=== PATIENT | male | born 1960 | race Caucasian/White ===

== ENCOUNTER 2018-05-15 02:42 | Observation (INO) | payer OTHER ==
[~2018-05-15] VITALS: Ht 167.6 cm; Wt 67.6 kg
[2018-05-15 03:51] VITALS: BP 132/73; PULSE 86; RESP 20
[2018-05-15 03:53] VITALS: Ht 167.6 cm; Wt 67.6 kg
[2018-05-15] MEDS ORDERED: NACL 0.9% 3 ML SYG IV SCH (05:30)
[2018-05-15] MEDS ORDERED: ACETAMINOPHEN 325 MG TAB PO PRN (05:30)
[2018-05-15] MEDS ORDERED: ALBUTEROL/IPRATROPIUM (NEB) 3 ML AMP HHN PRN (05:30)
[2018-05-15] MEDS ORDERED: ONDANSETRON 4 MG INJ IV PRN (05:30)
[2018-05-15] MEDS ORDERED: HYDROCODONE/APAP (5/325) TAB PO PRN (05:30)
[2018-05-15] MEDS: HYDROCODONE/APAP (5/325) TAB PO PRN (05:59)
--- NOTE | 2018-05-15 06:53 | NUR ---
EOSS: Direct admit from [facility] ED, alert, oriented X4, ambulatory with steady gait. Admission orders entered by Dr Lewis, given [place] for abdominal pain and Zofran for nausea. Complete skin check done, no pressure sore noted. Bowel sounds appreciated, SCD applied, to start on regular diet. Admission care done, to continue with plan of care.
--- NOTE | 2018-05-15 07:19 | HP ---
Date/Time of Note Date/Time of Note DATE: 05/15/18 TIME: 07:14 Assessment/Plan Lines/Catheters IV Catheter Type (from Nrsg): Peripheral IV Assessment/Plan Assessment/Plan 58-year-old male with history of alcohol abuse who is transferred to [facility] for insurance reason for management of abdominal pain with radiation to the back, most likely secondary to pancreatitis. PLAN -CT chest abdomen pelvis at the outside facility only shows distended gallbladder without stone otherwise no dissection or other acute abnormalities -Given history of alcohol abuse and location of pain, this is most likely from alcoholic pancreatitis. At the outside facility, lipase is slightly elevated. -will keep n.p.o -We will also place on PPI -Antiemetics and pain meds as needed -GI consult as needed -Check lipase -additional imaging as needed HPI/ROS Admit Date/Time Admit Date/Time May 15, 2018 at 03:28 Hx of Present Illness This is a 58-year-old male with no significant past medical history who initially presented to an outside hospital complaining of abdominal pain. Pain is mainly localized just above his umbilicus with radiation to the back. Symptoms been going on for the past few days. Reported associated nausea and vomiting. He said that he drinks heavily about 5 times a week. Denied chest pain or shortness of breath. At the outside facility, he had CT chest abdomen pelvis without significant findings except a somehow distended gallbladder without gallstones. Patient was transferred to [facility] for insurance reasons. PMH/Family/Social Past Medical History Medications Current Medications IV Flush (NS 3 ml) 3 ml PER PROTOCOL IV ; Start 05/15/18 at 05:30 Ondansetron HCl (Zofran Inj) 4 mg Q6H PRN IV NAUSEA AND/OR VOMITING Last administered on 05/15/18at 05:59; Admin Dose 4 MG; Start 05/15/18 at 05:30 Acetaminophen (Tylenol Tab) 650 mg Q6H PRN PO PAIN LEVEL 1-3 OR FEVER; Start 05/15/18 at 05:30 Acetaminophen/ Hydrocodone Bitart ([place] (5/325)) 1 tab Q6H PRN PO MODERATE PAIN LEVEL 4-6; Start 05/15/18 at 05:30 Acetaminophen/ Hydrocodone Bitart ([place] (5/325)) 2 tab Q6H PRN PO SEVERE PAIN LEVEL 7-10 Last administered on 05/15/18at 05:59; Admin Dose 2 TAB; Start 05/15/18 at 05:30 Famotidine (Pepcid) 20 mg Q12 PO ; Start 05/15/18 at 09:00 Albuterol/ Ipratropium (Duoneb) 3 ml Q2H RESP THERAPY PRN HHN SHORTNESS OF BREATH; Start 05/15/18 at 05:30 Coded Allergies: No Known Allergy (Unverified , 05/15/18) Exam/Review of Systems Vital Signs Vitals Vital Signs Date Temp Pulse Resp B/P (MAP) Pulse Ox O2 O2 Flow FiO2 Time Delivery Rate 05/15/18 98.1 86 20 132/73 97 Room Air 03:51 (92) Exam Constitutional: other (Distress due to abdominal pain) Head: normocephalic, atraumatic Eyes: EOMI, PERRL Respiratory: clear to auscultation, normal air movement Cardiovascular: regular rate and rhythm, nl pulses Gastrointestinal: soft LUIS VUONG MD May 15, 2018 07:19
--- NOTE | 2018-05-15 07:40 | NUR ---
post 1.5 hrs of taking [place] 2 tabs, pt complaining of severe abdominal pain again. Message sent to Dr Lewis for follow up.
[2018-05-15 08:22] VITALS: BP 141/86; PULSE 93; RESP 18
[2018-05-15] MEDS ORDERED: morphine 4 MG/ML VIAL IV PRN (08:30)
[2018-05-15] MEDS: KETOROLAC 30 MG INJ IV PRN ×2 (09:32→16:53)
[2018-05-15] MEDS: FAMOTIDINE 20 MG TAB PO SCH ×2 (09:33→21:01)
[2018-05-15] MEDS: CHLORDIAZEPOXIDE 25 MG CAP PO SCH ×3 (09:44→21:01)
[2018-05-15] MEDS: DEXTROSE 5%-0.45% NACL 1,000 ML IV SCH ×3 (11:04→21:01)
[2018-05-15 14:00] VITALS: BP 134/78; PULSE 88; RESP 20
[2018-05-15] MEDS ORDERED: LORAZEPAM 4 MG/ML VIAL IV PRN (14:30)
--- NOTE | 2018-05-15 14:43 | PN ---
Date/Time of Note Date/Time of Note DATE: 05/15/18 TIME: 14:35 Assessment/Plan VTE Prophylaxis Risk score (from Nsg)>0 risk: 2 SCD applied (from Nsg): Yes Pharmacological prophylaxis: other Lines/Catheters IV Catheter Type (from Nrsg): Peripheral IV Assessment/Plan Hospital Course S: Patient still having some abdominal pain symptoms. Still n.p.o. Asking for some water. O: VS - see below PE: Constitutional: other (Distress due to abdominal pain) Head: normocephalic, atraumatic Eyes: EOMI, PERRL Respiratory: clear to auscultation, normal air movement Cardiovascular: regular rate and rhythm, nl pulses Gastrointestinal: soft Neuro: No focal deficits Assessment/Plan: 58-year-old male with history of alcohol abuse who is tra nsferred to [facility] for insurance reason for management of abdominal pain with radiation to the back, most likely secondary to pancreatitis. #Alcohol pancreatitis: CT chest abdomen pelvis at the outside facility only shows distended gallbladder without stone otherwise no dissection or other acute abnormalities-but given history of alcohol abuse and location of pain, this is most likely from alcoholic pancreatitis. At the outside facility, lipase is sl ightly elevated. -For now continue to keep n.p.o -Continue PPI, trend lipase -Antiemetics and pain meds as needed -GI consult as needed -additional imaging as needed #Alcohol abuse: Patient showing some signs of withdrawal -Continue banana bag, Librium, Ativan as needed -Counseled on cessation #Questionable coronary disease: Per family member patient may have had a minor heart attack a few years ago. No present chest pain symptoms or shortness of breath. -Monitor, will check echocardiogram Result Diagram: 05/15/18 0732 05/15/18 0732 Results 24hrs Laboratory Tests Test 05/15/18 07:32 White Blood Count 14.3 H Red Blood Count 4.56 L Hemoglobin 13.0 L Hematocrit 39.1 L Mean Corpuscular Volume 85.7 Mean Corpuscular Hemoglobin 28.5 L Mean Corpuscular Hemoglobin Concent 33.2 Red Cell Distribution Width 13.4 Platelet Count 240 Mean Platelet Volume 8.7 Immature Granulocytes % 0.400 Neutrophils % 85.7 H Lymphocytes % 6.1 L Monocytes % 7.6 Eosinophils % 0.0 Basophils % 0.2 Nucleated Red Blood Cells % 0.0 Immature Granulocytes # 0.050 H Neutrophils # 12.2 H Lymphocytes # 0.9 Monocytes # 1.1 H Eosinophils # 0.0 Basophils # 0.0 Nucleated Red Blood Cells # 0.0 Sodium Level 141 Potassium Level 3.8 Chloride Level 98 Carbon Dioxide Level 29 Anion Gap 14 H Blood Urea Nitrogen 15 Creatinine 0.57 L Est Glomerular Filtrat Rate mL/min > 60 Glucose Level 134 Hemoglobin A1c 5.6 Calcium Level 9.1 Phosphorus Level 4.0 Magnesium Level 1.5 L Total Bilirubin 0.2 Direct Bilirubin 0.00 Indirect Bilirubin 0.2 Aspartate Amino Transf (AST/SGOT) 36 Alanine Aminotransferase (ALT/SGPT) 22 Alkaline Phosphatase 66 Creatine Kinase 112 Creatine Kinase Index 0.6 Creatinine Kinase MB (Mass) 0.68 Troponin I < 0.012 Total Protein 8.0 Albumin 4.6 Globulin 3.40 H Albumin/Globulin Ratio 1.35 Triglycerides Level 68 Cholesterol Level 231 H LDL Cholesterol, Calculated 110 HDL Cholesterol 107 H Cholesterol/HDL Ratio 2.1 Amylase Level 84 Lipase 85 Thyroid Stimulating Hormone (TSH) 0.711 Exam/Review of Systems Vital Signs Vitals Vital Signs Date Temp Pulse Resp B/P (MAP) Pulse Ox O2 O2 Flow FiO2 Time Delivery Rate 05/15/18 98.3 93 18 141/86 99 Room Air 08:22 (104) Medications Medications Current Medications IV Flush (NS 3 ml) 3 ml PER PROTOCOL IV ; Start 05/15/18 at 05:30 Ondansetron HCl (Zofran Inj) 4 mg Q6H PRN IV NAUSEA AND/OR VOMITING Last administered on 05/15/18at 05:59; Admin Dose 4 MG; Start 05/15/18 at 05:30 Acetaminophen (Tylenol Tab) 650 mg Q6H PRN PO PAIN LEVEL 1-3 OR FEVER; Start 05/15/18 at 05:30 Acetaminophen/ Hydrocodone Bitart ([place] (5/325)) 1 tab Q6H PRN PO MODERATE PAIN LEVEL 4-6; Start 05/15/18 at 05:30 Acetaminophen/ Hydrocodone Bitart ([place] (5/325)) 2 tab Q6H PRN PO SEVERE PAIN LEVEL 7-10 Last administered on 05/15/18at 05:59; Admin Dose 2 TAB; Start 05/15/18 at 05:30 Famotidine (Pepcid) 20 mg Q12 PO Last administered on 05/15/18at 09:33; Admin Dose 20 MG; Start 05/15/18 at 09:00 Albuterol/ Ipratropium (Duoneb) 3 ml Q2H RESP THERAPY PRN HHN SHORTNESS OF BREATH; Start 05/15/18 at 05:30 Ketorolac Tromethamine (Toradol) 30 mg Q6H PRN IV PAIN LEVEL 1-3 Last administered on 05/15/18at 09:32; Admin Dose 30 MG; Start 05/15/18 at 08:30; Stop 05/18/18 at 08:29 Chlordiazepoxide (Librium) 50 mg TID PO Last administered on 05/15/18at 13:18; Admin Dose 50 MG; Start 05/15/18 at 09:00 Dextrose/Sodium Chloride 1,000 ml @ 125 mls/hr Q8H IV Last administered on 05/15/18at 11:04; Admin Dose 125 MLS/HR; Start 05/15/18 at 08:30 Morphine Sulfate (morphine) 2 mg Q4H PRN IV SEVERE PAIN LEVEL 7-10; Start 05/15/18 at 16:30 Magnesium Sulfate 50 ml @ 25 mls/hr ONCE ONCE IVPB ; Start 05/15/18 at 15:30; Stop 05/15/18 at 17:29 Multivitamins 10 ml/Thiamine HCl 100 mg/Folic Acid 1 mg/Sodium Chloride 1,011.2 ml @ 125 mls/ hr DAILY@09 IVPB ; Start 05/16/18 at 09:00 Lorazepam (Ativan) 1 mg Q1H PRN IV AGITATION/ANXIETY; Start 05/15/18 at 14:30 LEIDY WILSON May 15, 2018 14:43
[2018-05-15] MEDS ORDERED: MAGNESIUM SULFATE 2 GM/50 ML 50 ML IVPB ONE (15:30)
--- NOTE | 2018-05-15 18:41 | RADRPT ---
Echocardiogram Report Patient Name: NICHELLE STEVEN Gender: Male Date: 1960 Study Date: 15-May-2018 Feeder/Folder: [facility] Location: [address] Ref. Physician: LEIDY WILSON Quality: Adequate Procedures: Transthoracic echocardiogram with complete 2D, M-Mode, and doppler examination. Indications: Coronary Artery Disease. 2D/M Mode Doppler Measurement Value Normal Ranges Measurement Value Normal Ranges LVIDd 2D 4.5 3.5 - 5.6 cm AV Peak Edward 1.5 m/sec LVIDs 2D 3.5 2.1 - 4.1 cm AV Peak PG 8.0 mmHg LVPWd 2D 1.1 0.6 - 1.1 cm LVOT Peak Edward 1.0 m/sec IVSd 2D 1.0 0.6 - 1.1 cm LVOT Peak PG 4.0 mmHg AoR Diam 2D 3.4 2.0 - 3.7 cm MV E Peak Edward 0.6 m/sec LA/Ao 2D 1 0 - 1 MV A Peak Edward 0.7 m/sec LA Dimen 2D 3.1 2.3 - 4.0 cm MV E/A 0.8 MV Decel Time 127 msec Lat E` Edward 0.1 m/sec Lateral E/E` 9.5 Med E` Edward 0.1 m/sec MV E/A 0.8 TR Peak Edward 3.2 m/sec TR Peak PG 41.0 mmHg RVSP 44.0 mmHg Findings Left Ventricle: Lower limits of normal systolic function. Normal left ventricular cavity size. Left ventricular wall thickness upper limits of normal. Ejection fraction is visually estimated at 4550 %. Tissue Doppler/Mitral Doppler indices are consistent with impaired relaxation (Stage I diastolic dysfunction). Right Ventricle: Normal right ventricular size. Normal right ventricular systolic function. Left Atrium: The left atrium is normal in size. Right Atrium: The right atrium is normal in size. Mitral Valve: Mild mitral leaflet calcification. Mild mitral annular calcification. Trace mitral regurgitation. Aortic Valve: No significant aortic stenosis or insufficiency. Aortic cusps appear mildly calcified. No aortic regurgitation. Tricuspid Valve: Normal appearance of the tricuspid valve. Estimated peak PA systolic pressure 44 mmHg. There is mild tricuspid regurgitation. Pulmonic Valve: Pulmonic valve not well visualized. There is trace pulmonic regurgitation. Pericardium: Normal pericardium with no significant pericardial effusion. Aorta: Normal aortic root. IVC: Normal size and normal respiratory collapse consistent with normal right atrial pressure. Conclusions Lower limits of normal systolic function. Normal left ventricular cavity size. Left ventricular wall thickness upper limits of normal. Ejection fraction is visually estimated at 45-50 %. Tissue Doppler/Mitral Doppler indices are consistent with impaired relaxation (Stage I diastolic dysfunction). Mild mitral leaflet calcification. Mild mitral annular calcification. Trace mitral regurgitation. No significant aortic stenosis or insufficiency. Aortic cusps appear mildly calcified. No aortic regurgitation. Normal appearance of the tricuspid valve. Estimated peak PA systolic pressure 44 mmHg. There is mild tricuspid regurgitation. Electronically Signed By: Geremias Sy 15-May-2018 18:40:40 -0800 Patient Name: NICHELLE STEVEN Study Date: 15-May-2018 [id number]
--- NOTE | 2018-05-15 19:46 | NUR ---
EOSS PATIENT A AND O X 4. STARTED ON TORADOL AND MORPHINE FOR MID ABDOMINAL PAIN WITH RADIATION TO MID SPINE, TORADOL GIVEN TWICE AND MORPHINE ONCE WITH TOLERABLE RELIEF. NPO, PATIENT AND FAMILY EDUCATED ON WHY PATIENT IS NPO. IVF D5 1/2 NS AT 125ML/HOUR. IV PATENT. RECEIVED MAGNESIUM 2MG IV, TOLERATED WELL. HAD TREMORS PRIOR TO FIRST LIBRIUM DOSE THAT ALLEVIATED 1 HOUR POST ADMINISTRATION OF MEDICATION. BED ALARM AND HOURLY ROUNDING PERFORMED, PATIENT CALLED RN ONCE WITH NEEDS. ENDORSED TO NIGHT RN.
[2018-05-15 20:48] VITALS: BP 136/69; PULSE 110; RESP 18
[2018-05-15] MEDS: morphine 4 MG/ML VIAL IV PRN (23:37)
[2018-05-16] MEDS: DEXTROSE 5%-0.45% NACL 1,000 ML IV SCH ×4 (00:30→14:52)
[2018-05-16 02:04] VITALS: BP 135/61; PULSE 100; RESP 20
[2018-05-16] MEDS: morphine 4 MG/ML VIAL IV PRN ×2 (04:03→17:25)
[2018-05-16] MEDS: CHLORDIAZEPOXIDE 25 MG CAP PO SCH ×3 (08:31→20:45)
[2018-05-16] MEDS: FAMOTIDINE 20 MG TAB PO SCH ×2 (08:31→20:45)
[2018-05-16 08:34] VITALS: BP 123/64; PULSE 111; RESP 18
[2018-05-16] MEDS: KETOROLAC 30 MG INJ IV PRN ×2 (08:40→19:43)
--- NOTE | 2018-05-16 08:43 | NUR ---
Called pharmacy, spoke with Marielos, multivitamin infusion being sent on 0900 pharmacy run. Will administer when delivered.
[2018-05-16] MEDS: MULTIVITAMINS 10 ML, THIAMINE 100 MG, FOLIC ACID 1 MG in SOD CHLORIDE 0.9% 1,000 ML IVPB SCH (12:15)
--- NOTE | 2018-05-16 12:24 | PN ---
Date/Time of Note Date/Time of Note DATE: 05/16/18 TIME: 12:21 Assessment/Plan VTE Prophylaxis Risk score (from Nsg)>0 risk: 2 SCD applied (from Nsg): Yes Pharmacological prophylaxis: other Lines/Catheters IV Catheter Type (from Nrsg): Peripheral IV Assessment/Plan Hospital Course S: Patient has less abdominal pain symptoms today. Echocardiogram results reviewed. Patient taking Librium with less anxiety and agitation. No acute events overnight. O: VS - see below PE: Constitutional: other (Distress due to abdominal pain) Head: normocephalic, atraumatic Eyes: EOMI, PERRL Respiratory: clear to auscultation, normal air movement Cardiovascular: regular rate and rhythm, nl pulses Gastrointestinal: soft Neuro: No focal deficits 2D echo May 15, 2018: Conclusions Lower limits of normal systolic function. Normal left ventricular cavity size. Left ventricular wall thickness upper limits of normal. Ejection fraction is visually estimated at 45-50 %. Tissue Doppler/Mitral Doppler indices are consistent with impaired relaxation (Stage I diastolic dysfunction). Mild mitral leaflet calcification. Mild mitral annular calcification. Trace mitral regurgitation. No significant aortic stenosis or insufficiency. Aortic cusps appear mildly calcified. No aortic regurgitation. Normal appearance of the tricuspid valve. Estimated peak PA systolic pressure 44 mmHg. There is mild tricuspid regurgitation. Assessment/Plan: 58-year-old male with history of alcohol abuse who is transferred to [facility] for insurance reason for management of abdominal pain with radiation to the back, most likely secondary to pancreatitis. #Alcohol pancreatitis: Resolving now. CT chest abdomen pelvis at the outside facility only shows distended gallbladder without stone otherwise no dissection or other acute abnormalities-but given history of alcohol abuse and location of pain, this is most likely from alcoholic pancreatitis. At the outside facility, lipase was slightly elevated, but now in normal levels. -We will monitor and start patient on low-fat low-cholesterol diet -Continue PPI -Antiemetics and pain meds as needed #Alcohol abuse: Patient showing some signs of withdrawal -but improving with banana bag and Librium. Has not required as needed Ativan. -Continue banana bag, Librium, Ativan as needed -Counseled on cessation #Questionable coronary disease: Per family member patient may have had a minor heart attack a few years ago. No present chest pain symptoms or shortness of breath. Echocardiogram does show lower limits of normal systolic function, EF around 45%. -Monitor, will start patient on Lasix 20 mg p.o. daily and lisinopril 2.5 mg p.o. daily Result Diagram: 05/16/187 05/16/18426 Results 24hrs Laboratory Tests Test 05/15/18 13:40 05/15/18 15:57 05/16/18 04:27 Creatine Kinase 102 Creatine Kinase Index 0.5 Creatinine Kinase MB (Mass) 0.52 Troponin I < 0.012 Ethyl Alcohol Level < 10.0 H White Blood Count 11.3 #H Red Blood Count 4.39 L Hemoglobin 12.7 L Hematocrit 37.3 L Mean Corpuscular Volume 85.0 Mean Corpuscular Hemoglobin 28.9 L Mean Corpuscular Hemoglobin Concent 34.0 Red Cell Distribution Width 13.5 Platelet Count 180 # Mean Platelet Volume 9.8 Immature Granulocytes % 0.900 H Neutrophils % Segmented Neutrophils % (Manual) 54 Band Neutrophils % (Manual) 35 H Lymphocytes % Lymphocytes % (Manual) 7 L Monocytes % Monocytes % (Manual) 1 Eosinophils % Basophils % Myelocytes % (Manual) 3 H Nucleated Red Blood Cells % 0.0 Immature Granulocytes # 0.100 H Neutrophils # Neutrophils # (Manual) 6.5 Band Neutrophils # 3.9 H Lymphocytes (Manual) 0.7 L Lymphocytes # Monocytes # Monocytes # (Manual) 0.1 L Eosinophils # Basophils # Myelocytes # 0.3 H Nucleated Red Blood Cells # Platelet Estimate NORMAL Polychromasia 1+ Poikilocytosis 1+ Anisocytosis 1+ Sodium Level 134 L Potassium Level 3.4 L Chloride Level 96 L Carbon Dioxide Level 29 Anion Gap 9 # Blood Urea Nitrogen 15 Creatinine 0.67 Est Glomerular Filtrat Rate mL/min > 60 Glucose Level 153 Calcium Level 8.5 Phosphorus Level 2.2 #L Magnesium Level 2.3 Lipase 67 Exam/Review of Systems Vital Signs Vitals Vital Signs Date Temp Pulse Resp B/P (MAP) Pulse Ox O2 O2 Flow FiO2 Time Delivery Rate 05/16/18 98.0 111 18 123/64 94 Room Air 08:34 (83) Intake and Output 05/15/18 05/15/18 05/16/18 1515:00 23:00 07:00 IntakeIntake Total 1037 ml 1000 ml BalanceBalance 1037 ml 1000 ml Medications Medications Current Medications IV Flush (NS 3 ml) 3 ml PER PROTOCOL IV ; Start 05/15/18 at 05:30 Ondansetron HCl (Zofran Inj) 4 mg Q6H PRN IV NAUSEA AND/OR VOMITING Last administered on 05/15/18at 05:59; Admin Dose 4 MG; Start 05/15/18 at 05:30 Acetaminophen (Tylenol Tab) 650 mg Q6H PRN PO PAIN LEVEL 1-3 OR FEVER; Start 05/15/18 at 05:30 Acetaminophen/ Hydrocodone Bitart ([place] (5/325)) 1 tab Q6H PRN PO MODERATE PAIN LEVEL 4-6; Start 05/15/18 at 05:30 Acetaminophen/ Hydrocodone Bitart ([place] (5/325)) 2 tab Q6H PRN PO SEVERE PAIN LEVEL 7-10 Last administered on 05/15/18at 05:59; Admin Dose 2 TAB; Start 05/15/18 at 05:30 Famotidine (Pepcid) 20 mg Q12 PO Last administered on 05/16/18at 08:31; Admin Dose 20 MG; Start 05/15/18 at 09:00 Albuterol/ Ipratropium (Duoneb) 3 ml Q2H RESP THERAPY PRN HHN SHORTNESS OF BREATH; Start 05/15/18 at 05:30 Ketorolac Tromethamine (Toradol) 30 mg Q6H PRN IV PAIN LEVEL 1-3 Last administered on 05/16/18at 08:40; Admin Dose 30 MG; Start 05/15/18 at 08:30; Stop 05/18/18 at 08:29 Chlordiazepoxide (Librium) 50 mg TID PO Last administered on 05/16/18at 08:31; Admin Dose 50 MG; Start 05/15/18 at 09:00 Dextrose/Sodium Chloride 1,000 ml @ 125 mls/hr Q8H IV Last administered on 05/16/18at 05:44; Admin Dose 125 MLS/HR; Start 05/15/18 at 08:30 Morphine Sulfate (morphine) 2 mg Q4H PRN IV SEVERE PAIN LEVEL 7-10 Last administered on 05/16/18at 04:03; Admin Dose 2 MG; Start 05/15/18 at 16:30 Multivitamins 10 ml/Thiamine HCl 100 mg/Folic Acid 1 mg/Sodium Chloride 1,011.2 ml @ 125 mls/ hr DAILY@09 IVPB ; Start 05/16/18 at 09:00 Lorazepam (Ativan) 1 mg Q1H PRN IV AGITATION/ANXIETY; Start 05/15/18 at 14:30 Potassium Phosphate 20 meq/ Sodium Chloride 254.5455 ml @ 63.636 m... ONCE ONCE IVPB ; Start 05/16/18 at 13:30; Stop 05/16/18 at 17:29 LEIDY WILSON May 16, 2018 12:24
[2018-05-16] MEDS: FUROSEMIDE 20 MG TAB PO SCH (13:26)
[2018-05-16] MEDS: LISINOPRIL 5 MG TAB PO SCH (13:27)
[2018-05-16] MEDS ORDERED: POTASSIUM PHOSPHATE 20 MEQ in SOD CHLORIDE 0.9% 250 ML IVPB ONE (13:30)
--- NOTE | 2018-05-16 19:00 | NUR ---
EOSS A AND O X 4. VSS. STARTED ON LASIX AND LISINOPRIL DUE TO ECHOCARDIOGRAM FINDINGS, PATIENT AND FAMILY EDUCATED ON MEDICATION. NO SEIZURE ACTIVITY NOTED, CONTINUES ON LIBRIUM. PATIENT REPORTED PAIN IMPROVED FROM YESTERDAY, TORADOL AND MORPHINE GIVEN ONCE. DIET ADVANCED TO LOW FAT/LOW CHOLESTEROL, EATING SMALL AMOUNT, TOELRATING WITHOUT NAUSEA BUT DID COMPAIN OF RIGHT SIDED STOMACH PAIN 1 HOUR AFTER EATING. PATIENT EDUCATED TO INFORM STAFF IF PAIN CONTINUES SO DR. WILSON CAN BE ALERTED. HOURLY ROUNDING PERFORMED, BED IN LOW, LOCKED POSITION, CALL LIGHT WITHIN REACH.
[2018-05-16 20:13] VITALS: BP 118/65; PULSE 63; RESP 20
[2018-05-16] MEDS: HYDROCODONE/APAP (5/325) TAB PO PRN (23:34)
[2018-05-17] MEDS: DEXTROSE 5%-0.45% NACL 1,000 ML IV SCH ×2 (00:30→06:22)
--- NOTE | 2018-05-17 05:33 | NUR ---
END OF SHIFT NOTE: PATIENT IS A AND O X 4; NOT IN DISTRESS. VS IS WNL; ALL MEDICATIONS HAVE BEEN GIVEN ORDERED AND PRN; ALL NEEDS ATTENDED; CALL LIGHT WITHIN REACH ; WILL ENDORSE TO THE DAY SHIFT RN
[2018-05-17] MEDS: FUROSEMIDE 20 MG TAB PO SCH (06:21)
--- NOTE | 2018-05-17 08:00 | NUR ---
PT RECEIVED IN BED. A,A,OX4. NOT IN ANY ACUTE DISTRESS. THE PLAN OF CARE DISCUSSED W/ THE PT, VERBALIZED UNDERSTANDING, CALL LIGHT IN REACH. PT ENCOURAGED TO CALL FOR ASSISTANCE.
[2018-05-17 08:03] VITALS: BP 104/62; PULSE 94; RESP 18
[2018-05-17] MEDS: FAMOTIDINE 20 MG TAB PO SCH (09:10)
[2018-05-17] MEDS: LISINOPRIL 5 MG TAB PO SCH (09:11)
[2018-05-17] MEDS: CHLORDIAZEPOXIDE 25 MG CAP PO SCH ×2 (09:11→13:50)
[2018-05-17] MEDS: KETOROLAC 30 MG INJ IV PRN (09:15)
[2018-05-17] MEDS: MULTIVITAMINS 10 ML, THIAMINE 100 MG, FOLIC ACID 1 MG in SOD CHLORIDE 0.9% 1,000 ML IVPB SCH (09:16)
[2018-05-17] MEDS ORDERED: POTASSIUM PHOSPHATE 20 MEQ in SOD CHLORIDE 0.9% 250 ML IVPB ONE (09:30)
[2018-05-17] MEDS: HYDROCODONE/APAP (5/325) TAB PO PRN (11:21)
--- NOTE | 2018-05-17 14:28 | PN ---
Date/Time of Note Date/Time of Note DATE: 05/17/18 TIME: 14:24 Assessment/Plan VTE Prophylaxis Risk score (from Nsg)>0 risk: 1 SCD applied (from Nsg): Yes Pharmacological prophylaxis: other Lines/Catheters IV Catheter Type (from Nrsg): Peripheral IV Assessment/Plan Hospital Course S: Patient apparently was afraid to eat and has decreased appetite since yesterday. Otherwise no acute events overnight. O: VS - see below PE: Constitutional: Lying in bed, family at the bedside Head: normocephalic, atraumatic Eyes: EOMI, PERRL Respiratory: clear to auscultation, normal air movement Cardiovascular: regular rate and rhythm, nl pulses Gastrointestinal: soft Neuro: No focal deficits 2D echo May 15, 2018: Conclusions Lower limits of normal systolic function. Normal left ventricular cavity size. Left ventricular wall thickness upper limits of normal. Ejection fraction is visually estimated at 45-50 %. Tissue Doppler/Mitral Doppler indices are consistent with impaired relaxation (Stage I diastolic dysfunction). Mild mitral leaflet calcification. Mild mitral annular calcification. Trace mitral regurgitation. No significant aortic stenosis or insufficiency. Aortic cusps appear mildly calcified. No aortic regurgitation. Normal appearance of the tricuspid valve. Estimated peak PA systolic pressure 44 mmHg. There is mild tricuspid regurgitation. Assessment/Plan: 58-year-old male with history of alcohol abuse who is trans ferred to [facility] for insurance reason for management of abdominal pain with radiation to the back, most likely secondary to pancreatitis. #Alcohol pancreatitis: Resolving now. CT chest abdomen pelvis at the outside facility only shows distended gallbladder without stone otherwise no dissection or other acute abnormalities-but given history of alcohol abuse and location of pain, this is most likely from alcoholic pancreatitis. At the outside facility, lipase was slightly elevated, but appears to be trending down now -We will monitor and encourage patient to eat low-fat low-cholesterol diet - we will also consider speech therapy eval -Continue PPI -Antiemetics and pain meds as needed #Alcohol abuse: Patient showing some signs of withdrawal -but improving with banana bag and Librium. Has not required as needed Ativan. -Continue banana bag, Librium, Ativan as needed -Counseled on cessation, and because he is still somewhat unsteady on his feet will get PT, OT consult #Questionable coronary disease: Per family member patient may have had a minor heart attack a few years ago. No present chest pain symptoms or shortness of breath. Echocardiogram does show lower limits of normal systolic function, EF around 45%. -Monitor, and started yesterday on Lasix 20 mg p.o. daily and lisinopril 2.5 mg p.o. daily -continue for now Result Diagram: 05/17/18 0426 05/17/18 0426 Results 24hrs Laboratory Tests Test 05/17/18 04:26 White Blood Count 10.0 Red Blood Count 4.04 L Hemoglobin 11.7 L Hematocrit 34.7 L Mean Corpuscular Volume 85.9 Mean Corpuscular Hemoglobin 29.0 Mean Corpuscular Hemoglobin Concent 33.7 Red Cell Distribution Width 13.5 Platelet Count 127 #L Mean Platelet Volume 10.2 Immature Granulocytes % 2.600 H Neutrophils % Segmented Neutrophils % (Manual) 52 Band Neutrophils % (Manual) 39 H Lymphocytes % Lymphocytes % (Manual) 4 L Monocytes % Monocytes % (Manual) 1 Eosinophils % Eosinophils % (Manual) 4 Basophils % Nucleated Red Blood Cells % 0.0 Immature Granulocytes # 0.260 H Neutrophils # Neutrophils # (Manual) 5.6 Band Neutrophils # 3.9 H Lymphocytes (Manual) 0.4 L Lymphocytes # Monocytes # Monocytes # (Manual) 0.1 L Eosinophils # Basophils # Nucleated Red Blood Cells # Platelet Estimate DECREASED Giant Platelets 2 H Poikilocytosis 1+ Anisocytosis 1+ Sodium Level 133 L Potassium Level 3.4 L Chloride Level 99 Carbon Dioxide Level 27 Anion Gap 7 Blood Urea Nitrogen 19 Creatinine 0.73 Est Glomerular Filtrat Rate mL/min > 60 Glucose Level 112 # Calcium Level 8.3 L Phosphorus Level 2.3 L Magnesium Level 2.4 Exam/Review of Systems Vital Signs Vitals Vital Signs Date Temp Pulse Resp B/P (MAP) Pulse Ox O2 O2 Flow FiO2 Time Delivery Rate 05/17/18 98.7 94 18 104/62 98 08:03 (76) 05/16/18 Room Air 20:13 Intake and Output 05/16/18 05/16/18 05/17/18 1515:00 23:00 07:00 IntakeIntake Total 1300 ml 494.5455 ml 1000 ml BalanceBalance 1300 ml 494.5455 ml 1000 ml Medications Medications Current Medications IV Flush (NS 3 ml) 3 ml PER PROTOCOL IV ; Start 05/15/18 at 05:30 Ondansetron HCl (Zofran Inj) 4 mg Q6H PRN IV NAUSEA AND/OR VOMITING Last administered on 05/15/18at 05:59; Admin Dose 4 MG; Start 05/15/18 at 05:30 Acetaminophen (Tylenol Tab) 650 mg Q6H PRN PO PAIN LEVEL 1-3 OR FEVER; Start 05/15/18 at 05:30 Acetaminophen/ Hydrocodone Bitart ([place] (5/325)) 1 tab Q6H PRN PO MODERATE PAIN LEVEL 4-6; Start 05/15/18 at 05:30 Acetaminophen/ Hydrocodone Bitart ([place] (5/325)) 2 tab Q6H PRN PO SEVERE PAIN LEVEL 7-10 Last administered on 05/17/18at 11:21; Admin Dose 2 TAB; Start 05/15/18 at 05:30 Famotidine (Pepcid) 20 mg Q12 PO Last administered on 05/17/18at 09:10; Admin Dose 20 MG; Start 05/15/18 at 09:00 Albuterol/ Ipratropium (Duoneb) 3 ml Q2H RESP THERAPY PRN HHN SHORTNESS OF BREATH; Start 05/15/18 at 05:30 Ketorolac Tromethamine (Toradol) 30 mg Q6H PRN IV PAIN LEVEL 1-3 Last administered on 05/17/18at 09:15; Admin Dose 30 MG; Start 05/15/18 at 08:30; Stop 05/18/18 at 08:29 Chlordiazepoxide (Librium) 50 mg TID PO Last administered on 05/17/18at 13:50; Admin Dose 50 MG; Start 05/15/18 at 09:00 Dextrose/Sodium Chloride 1,000 ml @ 125 mls/hr Q8H IV Last administered on 05/17/18at 06:22; Admin Dose 125 MLS/HR; Start 05/15/18 at 08:30 Morphine Sulfate (morphine) 2 mg Q4H PRN IV SEVERE PAIN LEVEL 7-10 Last ad ministered on 05/16/18at 17:25; Admin Dose 2 MG; Start 05/15/18 at 16:30 Multivitamins 10 ml/Thiamine HCl 100 mg/Folic Acid 1 mg/Sodium Chloride 1,011.2 ml @ 125 mls/ hr DAILY@09 IVPB Last administered on 05/17/18at 09:16; Admin Dose 125 MLS/HR; Start 05/16/18 at 09:00 Lorazepam (Ativan) 1 mg Q1H PRN IV AGITATION/ANXIETY; Start 05/15/18 at 14:30 Furosemide (Lasix) 20 mg DAILY@0600 PO Last administered on 05/17/18at 06:21; Admin Dose 20 MG; Start 05/16/18 at 12:30 Lisinopril (Zestril) 2.5 mg DAILY PO Last administered on 05/17/18at 09:11; Admin Dose 2.5 MG; Start 05/16/18 at 12:30 LEIDY WILSON May 17, 2018 14:28
[2018-05-17 14:54] VITALS: BP 104/65; PULSE 86; RESP 16
--- NOTE | 2018-05-17 17:00 | NUR ---
CALLED TO PT'S ROOM BY HIS . FOUND PT WITH HIS IV PULLED OUT BY HIM, PT IS DRESSED AND SAYING THAT HE IS LEAVING. TXTED DR. WILSON TO NOTIFY.
--- NOTE | 2018-05-17 17:15 | NUR ---
DR. WILSON CALLED BACK AND SAID THAT HE IS NOT DISCHARGING THE PT TODAY AND PT CAN LEAVE AMA IF HE INSISTS. SPOKE W/THE PT AND HIS -THE PT IS INSISTING ON LEAVING NOW.
--- NOTE | 2018-05-17 17:25 | NUR ---
PT LEFT AMA.
--- NOTE | 2018-05-17 20:59 | DS ---
Date/Time of Note Date/Time of Note DATE: 05/17/18 TIME: 20:59 Discharge Summary Admission/Discharge Info Admit Date/Time May 15, 2018 at 03:28 Discharge Date/Time May 17, 2018 at 17:25 Discharge Diagnosis Pt left AMA Patient Condition: Serious Hospital Course S: Patient apparently was afraid to eat and has decreased appetite since yesterday. Otherwise no acute events overnight. O: VS - see below PE: Constitutional: Lying in bed, family at the bedside Head: normocephalic, atraumatic Eyes: EOMI, PERRL Respiratory: clear to auscultation, normal air movement Cardiovascular: regular rate and rhythm, nl pulses Gastrointestinal: soft Neuro: No focal deficits 2D echo May 15, 2018: Conclusions Lower limits of normal systolic function. Normal left ventricular cavity size. Left ventricular wall thickness upper limits of normal. Ejection fraction is visually estimated at 45-50 %. Tissue Doppler/Mitral Doppler indices are consistent with impaired relaxation (Stage I diastolic dysfunction). Mild mitral leaflet calcification. Mild mitral annular calcification. Trace mitral regurgitation. No significant aortic stenosis or insufficiency. Aortic cusps appear mildly calcified. No aortic regurgitation. Normal appearance of the tricuspid valve. Estimated peak PA systolic pressure 44 mmHg. There is mild tricuspid regurgitation. Assessment/Plan: 58-year-old male with history of alcohol abuse who is transferred to [facility] for insurance reason for management of abdominal pain with radiation to the back, most likely secondary to pancreatitis. #Alcohol pancreatitis: Resolving now. CT chest abdomen pelvis at the outside facility only shows distended gallbladder without stone otherwise no dissection or other acute abnormalities-but given history of alcohol abuse and location of pain, this is most likely from alcoholic pancreatitis. At the outside facility, lipase was slightly elevated, but appears to be trending down now -We will monitor and encourage patient to eat low-fat low-cholesterol diet - we will also consider speech therapy eval -Continue PPI -Antiemetics and pain meds as needed #Alcohol abuse: Patient showing some signs of withdrawal -but improving with banana bag and Librium. Has not required as needed Ativan. -Continue banana bag, Librium, Ativan as needed -Counseled on cessation, and because he is still somewhat unsteady on his feet will get PT, OT consult #Questionable coronary disease: Per family member patient may have had a minor heart attack a few years ago. No present chest pain symptoms or shortness of breath. Echocardiogram does show lower limits of normal systolic function, EF around 45%. -Monitor, and started yesterday on Lasix 20 mg p.o. daily and lisinopril 2.5 mg p.o. daily -continue for now Primary Care Provider Care Physician No Primary Time spent on discharge: < 30 minutes Pending Labs Laboratory Tests Test 05/17/18 04:26 White Blood Count 10.0 10^3/ul (4.8-10.8) Red Blood Count 4.04 10^6/ul (4.70-6.10) Hemoglobin 11.7 g/dl (14.0-18.0) Hematocrit 34.7 % (42.0-52.0) Mean Corpuscular Volume 85.9 fl (82.0-101.0) Mean Corpuscular Hemoglobin 29.0 pg (29.0-33.0) Mean Corpuscular Hemoglobin Concent 33.7 g/dl (32.0-37.0) Red Cell Distribution Width 13.5 % (11.5-14.5) Platelet Count 127 10^3/UL (140-415) Mean Platelet Volume 10.2 fl (7.4-10.4) Immature Granulocytes % 2.600 % (0.001-0.429) Neutrophils % % (39.0-77.0) Segmented Neutrophils % (Manual) 52 % (39-77) Band Neutrophils % (Manual) 39 % (0-4) Lymphocytes % % (15.0-51.0) Lymphocytes % (Manual) 4 % (15-51) Monocytes % % (0.0-11.0) Monocytes % (Manual) 1 % (0-11) Eosinophils % % (0.0-7.0) Eosinophils % (Manual) 4 % (0-7) Basophils % % (0.0-2.0) Nucleated Red Blood Cells % 0.0 /100WBC (0.0-0.0) Immature Granulocytes # 0.260 10^3/ul (0.0-0.031) Neutrophils # 10^3/ul (1.6-7.5) Neutrophils # (Manual) 5.6 10^3/ul (1.6-7.5) Band Neutrophils # 3.9 10^3/ul (0.0-0.6) Lymphocytes (Manual) 0.4 10^3/ul (0.8-2.9) Lymphocytes # 10^3/ul (0.8-2.9) Monocytes # 10^3/ul (0.3-0.9) Monocytes # (Manual) 0.1 10^3/ul (0.3-0.9) Eosinophils # 10^3/ul (0.0-0.5) Basophils # 10^3/ul (0.0-0.1) Nucleated Red Blood Cells # 10^3/ul (0.0-0.0) Platelet Estimate DECREASED Giant Platelets 2 % (0-0) Poikilocytosis 1+ (0-0) Anisocytosis 1+ (0-0) Sodium Level 133 mmol/L (135-144) Potassium Level 3.4 mmol/L (3.5-5.1) Chloride Level 99 mmol/L (97-110) Carbon Dioxide Level 27 mmol/L (21-31) Anion Gap 7 (5-13) Blood Urea Nitrogen 19 mg/dl (7-20) Creatinine 0.73 mg/dl (0.61-1.24) Est Glomerular Filtrat Rate mL/min > 60 mL/min (>60) Glucose Level 112 mg/dl (70-220) Calcium Level 8.3 mg/dl (8.4-10.2) Phosphorus Level 2.3 mg/dl (2.5-4.9) Magnesium Level 2.4 mg/dl (1.7-2.5) LEIDY WILSON May 17, 2018 20:59
== END 2018-05-17 17:25 | disposition left against medical advice (07) ==
LOC: INTOOBSV 03:28 → MS1 03:28
PROVIDERS: ADMIT Internal Medicine; ATTEND Hospitalist
DX: K85.20 Alcohol induced acute pancreatitis without necrosis or infection (principal); F10.10 Alcohol abuse, uncomplicated
CPT/HCPCS: 80048; 80053; 80061; 80307; 82150; 82550; 82553; 83036; 83690; 83735; 84100; 84443; 84484; 85025; 93306; J1885; J2270; J2405; J3411; J3475; J7030; J7042; J7050; Z7500; Z7610; 99217; G0378